=== PATIENT | female | born 1960 | race Caucasian/White ===

== ENCOUNTER 2020-05-02 10:31 | Emergency (ER) | payer MEDICARE ==
[~2020-05-02] VITALS: Ht 170.1 cm; Wt 51.7 kg
[2020-05-02 10:44] VITALS: BP 134/74
== END 2020-05-02 11:48 | disposition home or self-care (01) ==
LOC: ED 10:31
DX: S61.512A Laceration without foreign body of left wrist, initial encounter (principal); X58.XXXA Exposure to other specified factors, initial encounter; Y93.89 Activity, other specified; Y92.89 Other specified places as the place of occurrence of the external cause; Y99.8 Other external cause status

== ENCOUNTER 2022-05-11 18:34 | Emergency (ER) | payer MEDICARE ==
[~2022-05-11] VITALS: Wt 45.4 kg
[2022-05-11 18:51] VITALS: BP 131/56
[2022-05-11] MEDS ORDERED: ZITHROMAX250 MG PO (20:22)
[2022-05-11] MEDS ORDERED: PREDNISONE20 M1 PO (20:22)
== END 2022-05-11 20:36 | disposition home or self-care (01) ==
LOC: ED 18:34
DX: J40 Bronchitis, not specified as acute or chronic (principal); Z88.0 Allergy status to penicillin; Z90.710 Acquired absence of both cervix and uterus; F17.200 Nicotine dependence, unspecified, uncomplicated

== ENCOUNTER 2023-01-30 08:07 | Emergency (ER) | payer OTHER ==
[~2023-01-30] VITALS: Ht 170.1 cm; Wt 47.6 kg
[~2023-01-30 08:07] MED LIST: PREDNISONE20 M1 PO; ZITHROMAX250 MG PO
[2023-01-30 08:18] VITALS: BP 98/59
== END 2023-01-30 10:26 | disposition home or self-care (01) ==
LOC: ED 08:07
DX: S90.32XA Contusion of left foot, initial encounter (principal); Z88.0 Allergy status to penicillin; Z90.710 Acquired absence of both cervix and uterus; W11.XXXA Fall on and from ladder, initial encounter; Y93.89 Activity, other specified; Y92.89 Other specified places as the place of occurrence of the external cause; Y99.8 Other external cause status

== ENCOUNTER 2023-11-05 15:09 | Emergency (ER) | payer OTHER ==
[~2023-11-05] VITALS: Ht 170.1 cm; Wt 45.4 kg
[2023-11-05] MEDS ORDERED: Albuterol Sulf/Ipratropium 3 ML VIAL NEB ONE ×2 (15:35→18:20)
[2023-11-05] MEDS ORDERED: methylPREDNISolone sod succ 125 MG VIAL IM ONE (15:35)
[2023-11-05 16:15] LABS: BASO % 0.2 % (0.0-1.0); HEMATOCRIT 46.5 % (37.0-47.0); LYMPH # 0.9 10*3/uL (1.3-4.4); LYMPH % 18.1 % (27.0-41.0); MEAN CELL VOLUME 94.7 fl (81.0-99.0); MEAN CORPUSCULAR HGB 31.6 pg (27.0-31.0); MEAN CORPUSCULAR HGB CONC 33.3 g/dl (33.0-37.0); MEAN PLATELET VOLUME 9.1 fl (9.6-12.3); MONO # 0.1 10*3/uL (0.1-1.0); MONO % 2.4 % (3.0-9.0); NEUT # 3.9 10*3/uL (2.3-7.9); NEUT % 79.1 % (47.0-73.0); PLATELET COUNT AUTOMATED 291 10*3/uL (130-400); RED BLOOD COUNT 4.91 10*6/uL (4.10-5.10); RED CELL DISTRI WIDTH 13.2 % (0-14.5); WHITE BLOOD COUNT 4.9 10*3/uL (4.8-10.8)
[2023-11-05 16:34] LABS: BUN 9 mg/dl (9-23); CHLORIDE 105 mmol/L (98-107); POTASSIUM 4.5 mmol/L (3.4-5.1)
[2023-11-05] MEDS ORDERED: AZITHROMYCIN 250 MG TAB PO ONE (17:00)
[2023-11-05] MEDS ORDERED: ZITHROMAX250 MG PO (17:00)
[2023-11-05] MEDS ORDERED: SODIUM CHLORIDE 0.9% 1,000 ML IV ONE (17:00)
[2023-11-05] MEDS ORDERED: PREDNISONE50 MG PO (17:01)
[2023-11-05 17:59] VITALS: BP 114/72
[2023-11-07] MEDS ORDERED: VENT7GM INH (09:53)
[2023-11-07] MEDS ORDERED: ADVAIR 250/501 EA INH (09:55)
[2023-11-07] MEDS ORDERED: NEURONTIN800 MG PO (09:55)
[2023-11-07] MEDS ORDERED: HYDROCODONE-AC1 EACH PO (09:56)
[2023-11-07] MEDS ORDERED: INCRUSE ELLI62.5 MCG INH (09:57)
== END 2023-11-05 18:20 | disposition home or self-care (01) ==
LOC: ED 15:09
PROVIDERS: Nurse Practitioner Family
DX: J44.1 Chronic obstructive pulmonary disease with (acute) exacerbation (principal); F17.290 Nicotine dependence, other tobacco product, uncomplicated; Z88.0 Allergy status to penicillin; Z90.710 Acquired absence of both cervix and uterus

== ENCOUNTER 2023-11-06 13:03 | Emergency (ER) | payer OTHER ==
[~2023-11-06] VITALS: Ht 170.1 cm; Wt 45.4 kg
[~2023-11-06 13:03] MED LIST changes: +PREDNISONE50 MG PO
[2023-11-06] MEDS ORDERED: Albuterol Sulf/Ipratropium 3 ML VIAL NEB ONE (13:10)
[2023-11-06 13:19] LABS: BASO % 0.1 % (0.0-1.0); HEMATOCRIT 43.5 % (37.0-47.0); LYMPH # 0.6 10*3/uL (1.3-4.4); LYMPH % 6.5 % (27.0-41.0); MEAN CELL VOLUME 94.8 fl (81.0-99.0); MEAN CORPUSCULAR HGB 30.7 pg (27.0-31.0); MEAN CORPUSCULAR HGB CONC 32.4 g/dl (33.0-37.0); MEAN PLATELET VOLUME 9.3 fl (9.6-12.3); MONO # 0.4 10*3/uL (0.1-1.0); MONO % 3.9 % (3.0-9.0); NEUT # 8.5 10*3/uL (2.3-7.9); NEUT % 89.2 % (47.0-73.0); PLATELET COUNT AUTOMATED 278 10*3/uL (130-400); RED BLOOD COUNT 4.59 10*6/uL (4.10-5.10); RED CELL DISTRI WIDTH 12.9 % (0-14.5); WHITE BLOOD COUNT 9.6 10*3/uL (4.8-10.8)
[2023-11-06 13:25] VITALS: BP 92/48
[2023-11-06 13:38] LABS: BUN 14 mg/dl (9-23); CHLORIDE 107 mmol/L (98-107); POTASSIUM 3.8 mmol/L (3.4-5.1)
[2023-11-07] MEDS ORDERED: VENT7GM INH (09:53)
[2023-11-07] MEDS ORDERED: NEURONTIN800 MG PO (09:55)
[2023-11-07] MEDS ORDERED: ADVAIR 250/501 EA INH (09:55)
[2023-11-07] MEDS ORDERED: HYDROCODONE-AC1 EACH PO (09:56)
[2023-11-07] MEDS ORDERED: INCRUSE ELLI62.5 MCG INH (09:57)
== END 2023-11-06 14:24 | disposition left against medical advice (07) ==
LOC: ED 13:03
PROVIDERS: Physician Assistant Medical
DX: J44.1 Chronic obstructive pulmonary disease with (acute) exacerbation (principal); J18.9 Pneumonia, unspecified organism; R79.89 Other specified abnormal findings of blood chemistry; Z53.29 Procedure and treatment not carried out because of patient's decision for other reasons; F17.290 Nicotine dependence, other tobacco product, uncomplicated; Z88.0 Allergy status to penicillin; Z90.710 Acquired absence of both cervix and uterus

== ENCOUNTER 2024-06-16 08:14 | Emergency (ER) | payer OTHER ==
[~2024-06-16] VITALS: Ht 170.1 cm; Wt 44.5 kg
[~2024-06-16 08:14] MED LIST changes: +ADVAIR 250/501 EA INH; +ASPIRIN ADULT L81 M2 PO; +ATORVASTATIN CA40 M1 PO; +HYDROCODONE-AC1 EACH PO; +INCRUSE ELLI62.5 MCG INH; +LOPRESSOR25 MG PO; +Levaquin IV; +NEURONTIN800 MG PO; +PREDNISONE10 MG PO; +VENT7GM INH
[2024-06-16 08:21] VITALS: BP 122/50
[2024-06-16] MEDS ORDERED: AVPAK AZITHROM250 MG PO (09:26)
[2024-06-16] MEDS ORDERED: MEDROL DOSEPAK4 MG PO (09:26)
== END 2024-06-16 09:25 | disposition home or self-care (01) ==
LOC: ED 08:14
DX: J18.9 Pneumonia, unspecified organism (principal); J44.9 Chronic obstructive pulmonary disease, unspecified; F17.210 Nicotine dependence, cigarettes, uncomplicated; Z88.0 Allergy status to penicillin; Z90.710 Acquired absence of both cervix and uterus

== ENCOUNTER → 2024-07-18 | Outpatient (CLI) | payer OTHER ==
[~2024-07-18] MED LIST changes: +AVPAK AZITHROM250 MG PO; +MEDROL DOSEPAK4 MG PO
[2024-07-18 08:57] LABS: BASO % 0.5 % (0.0-1.0); EOS # 0.1 10*3/uL (0.0-0.4); EOS % 0.8 % (1.0-4.0); HEMATOCRIT 43.8 % (37.0-47.0); MEAN CELL VOLUME 92.6 fl (81.0-99.0); MEAN CORPUSCULAR HGB CONC 32.4 g/dl (33.0-37.0); MEAN PLATELET VOLUME 8.9 fl (9.6-12.3); MONO # 0.7 10*3/uL (0.1-1.0); MONO % 8.2 % (3.0-9.0); NEUT # 5.6 10*3/uL (2.3-7.9); NEUT % 66.4 % (47.0-73.0); PLATELET COUNT AUTOMATED 319 10*3/uL (130-400); RED BLOOD COUNT 4.73 10*6/uL (4.10-5.10); RED CELL DISTRI WIDTH 12.9 % (0-14.5); WHITE BLOOD COUNT 8.4 10*3/uL (4.8-10.8)
[2024-07-18 09:46] LABS: ALKALINE PHOSPHATASE 93 U/L (46-116); BUN 10 mg/dl (9-23); CHLORIDE 106 mmol/L (98-107); CHOLESTEROL 160 mg/dL (<200); FREE T4 1.33 ng/dl (0.89-1.76); LDL CHOLESTEROL 100 mg/dL (9-159); POTASSIUM 4.4 mmol/L (3.4-5.1); SGPT/ALT 10 U/L (5-49); TOTAL PROTEIN 7.2 gm/dL (6.0-8.0); TRIGLYCERIDES 77 mg/dl (<150); VITAMIN D, 25-HYDROXY 44.5 ng/mL (30-100)
== END | disposition home or self-care (01) ==
LOC: LAB 08:31
PROVIDERS: ATTEND Internal Medicine
DX: Z13.220 Encounter for screening for lipoid disorders (principal); Z13.228 Encounter for screening for other metabolic disorders; Z13.89 Encounter for screening for other disorder; Z13.0 Encounter for screening for diseases of the blood and blood-forming organs and certain disorders involving the immune mechanism; Z13.6 Encounter for screening for cardiovascular disorders; Z13.1 Encounter for screening for diabetes mellitus; Z13.21 Encounter for screening for nutritional disorder; R53.83 Other fatigue; E53.9 Vitamin B deficiency, unspecified; E55.9 Vitamin D deficiency, unspecified

== ENCOUNTER → 2024-08-12 | Outpatient (CLI) | payer OTHER | END | disposition home or self-care (01) | LOC: CT 10:21 | PROVIDERS: ATTEND Internal Medicine | DX: Z12.2 Encounter for screening for malignant neoplasm of respiratory organs (principal); R91.1 Solitary pulmonary nodule; J43.9 Emphysema, unspecified; I25.10 Atherosclerotic heart disease of native coronary artery without angina pectoris; F17.210 Nicotine dependence, cigarettes, uncomplicated ==

== ENCOUNTER → 2024-10-03 | Outpatient (CLI) | payer OTHER | END | disposition home or self-care (01) | LOC: CT 09-20 10:00 | PROVIDERS: ATTEND Internal Medicine Critical Care Medicine | DX: J43.9 Emphysema, unspecified (principal); I25.10 Atherosclerotic heart disease of native coronary artery without angina pectoris; J44.9 Chronic obstructive pulmonary disease, unspecified; J45.40 Moderate persistent asthma, uncomplicated; R91.1 Solitary pulmonary nodule; Z68.1 Body mass index [BMI] 19.9 or less, adult; Z87.891 Personal history of nicotine dependence ==

== ENCOUNTER → 2025-01-17 | Outpatient (CLI) | payer OTHER | END | disposition home or self-care (01) | LOC: CT 09:44 | PROVIDERS: ATTEND Internal Medicine Critical Care Medicine | DX: J43.9 Emphysema, unspecified (principal); R91.8 Other nonspecific abnormal finding of lung field; I25.10 Atherosclerotic heart disease of native coronary artery without angina pectoris ==

== ENCOUNTER 2025-04-11 23:59 | Emergency (ER) | payer OTHER ==
[~2025-04-11] VITALS: Ht 170.1 cm; Wt 45.4 kg
[2025-04-12 00:19] LABS: BASO # 0.1 10*3/uL (0.0-0.1); BASO % 0.7 % (0.0-1.0); EOS # 0.2 10*3/uL (0.0-0.4); EOS % 2.2 % (1.0-4.0); MEAN CELL VOLUME 98.0 fl (81.0-99.0); MEAN CORPUSCULAR HGB 31.5 pg (27.0-31.0); MEAN PLATELET VOLUME 9.3 fl (9.6-12.3); MONO # 1.0 10*3/uL (0.1-1.0); MONO % 9.6 % (3.0-9.0); NEUT # 4.9 10*3/uL (2.3-7.9); NEUT % 49.9 % (47.0-73.0); NUCLEATED RED BLOOD CELL 0.0 % (0.0-0.0); NUCLEATED RED BLOOD CELL 0.0 10*3/uL (0.0-0.0); PLATELET COUNT AUTOMATED 267 10*3/uL (130-400); RED CELL DISTRI WIDTH 13.6 % (0-14.5)
[2025-04-12 00:41] LABS: BUN 16 mg/dl (9-23)
[2025-04-12] MEDS ORDERED: TRELEGY ELLIPT1 EAC1 INH (01:56)
[2025-04-12] MEDS ORDERED: MELOXICAM15 MG PO (01:56)
[2025-04-12 03:05] VITALS: BP 105/52
== END 2025-04-12 04:00 | disposition home or self-care (01) ==
LOC: ED 23:59
PROVIDERS: Internal Medicine
DX: R07.89 Other chest pain (principal); J44.9 Chronic obstructive pulmonary disease, unspecified; F17.200 Nicotine dependence, unspecified, uncomplicated; Z90.710 Acquired absence of both cervix and uterus; Z88.0 Allergy status to penicillin

== ENCOUNTER → 2025-04-26 | Outpatient (CLI) | payer OTHER ==
[~2025-04-26] MED LIST changes: +MELOXICAM15 MG PO; +TRELEGY ELLIPT1 EAC1 INH
== END | disposition home or self-care (01) ==
LOC: CT 04-25 10:00
PROVIDERS: ATTEND Internal Medicine Critical Care Medicine
DX: J43.9 Emphysema, unspecified (principal); J44.9 Chronic obstructive pulmonary disease, unspecified; J45.50 Severe persistent asthma, uncomplicated; R91.1 Solitary pulmonary nodule; J84.10 Pulmonary fibrosis, unspecified; I70.0 Atherosclerosis of aorta; M85.88 Other specified disorders of bone density and structure, other site; M47.814 Spondylosis without myelopathy or radiculopathy, thoracic region; J98.4 Other disorders of lung; M47.816 Spondylosis without myelopathy or radiculopathy, lumbar region; Z87.891 Personal history of nicotine dependence; Z68.1 Body mass index [BMI] 19.9 or less, adult